=== PATIENT | female | born 1965 | race Caucasian/White ===

== ENCOUNTER 2023-02-21 06:55 | Day surgery (SDC) | payer BC ==
[2023-02-19 10:42] VITALS: BP 178/100
[~2023-02-21] VITALS: Ht 154.9 cm; Wt 73.2 kg
[~2023-02-21 06:55] MED LIST: ALORA1 EAC1 TD; BACLOFEN10 MG; DICLOFENAC SODI75 MG; DOXEPIN HCL10 MG; ESCITALOPRAM OXA5 MG PO; GABAPENTIN300 MG PO; HYDROCODON-ACE1 EA11 PO; HYDROXYZINE HCL25 MG PO; LIPITOR20 MG; LOSARTAN-HCTZ1 EAC1 PO; MELOXICAM7.5 MG PO; METOPROLOL SUCC50 MG PO; NORVASC5 MG PO; OXYCODONE HCL5 MG PO; ULTRAM50 MG PO; VENTOLIN HFA18 GM; XARELTO10 MG PO; ZANAFLEX4 M1 PO
[2023-02-21 07:03] VITALS: BP 171/66
[2023-02-21] MEDS ORDERED: TYLENOL EXTRA500 MG PO (07:08)
[2023-02-21 09:33] VITALS: BP 176/90
--- NOTE | 2023-02-21 13:59 | OR ---
[facility] [address], [place] [address] Signed DATE OF OPERATION: 02/21/2023 SURGEON: Beatriz Aguirre MD PREOPERATIVE DIAGNOSIS: Personal history of colonic polyps in 2012 at age 48. POSTOPERATIVE DIAGNOSIS: Minimal internal hemorrhoids. PROCEDURE: Colonoscopy with hot biopsy. ESTIMATED BLOOD LOSS: None. INDICATIONS FOR THE PROCEDURE: Melyssa is a 57-year-old female, who has undergone a colonoscopy at age 48 back in 2011. She did this at the [facility]. She remembers a letter had been sent to her with some type of cancer cells in her polyps. They want her back in a short interval. They also advised that she inform her children all to undergo colonoscopies as well. In the meantime, she moved out to [place], [place]. 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 Christian Kenny on November 20, 2022. She is hoping to have the right knee replaced in March [address] Kenny. She was wanting to undergo her colonoscopy in between the two knee replacements. She understands she has to wait three months after her joint replacement to have a colonoscopy. She also told me that narcotics have been causing her to run a little constipated. She has no family history of colon cancer or polyps. She does not seem to have any lower GI complaints currently. We have been trying to track down her records from [place]. In the office, I gave her a pamphlet on colonoscopy. She understands the nature of the test. There is risk including, but not limited to gas bloating, crampy abdominal pain, bleeding, perforation requiring surgery, and missed diagnosis. We also reviewed the written instructions for a bowel prep line by line. We also discussed the need for monitored anesthesia care given her need for narcotics. She had expressed understanding and wished to proceed. DESCRIPTION OF PROCEDURE: Melyssa was taken into our endoscopy suite and placed in the left lateral decubitus position. She was given monitored anesthesia care per our nurse aerial erector with propofol infusion. She was given preoperative antibiotics because of her knee replacement. A digital rectal exam was performed and this was unremarkable. There were Electronically Signed By: BEATRIZ AGUIRRE MD 02/21/23 1359 PATIENT NAME: MELYSSA ROE OPERATIVE REPORT DATE OF : 61 REPORT #: [id number] PHYSICIAN: BEATRIZ AGUIRRE MD PCP: VIKI HAMMOND MD REPORT IS CONFIDENTIAL AND NOT TO BE RELEASED WITHOUT AUTHORIZATION [facility] [address], [place] [address] Signed no external hemorrhoids. She had good sphincter tone. There were no masses. The adult colonoscope was introduced and advanced all around into the cecum under direct visualization of camera without difficulty. Her prep was quite excellent. We could easily see the appendiceal orifice and ileocecal valve. The scope was then slowly withdrawn. There was no pathology throughout the entire colon or rectum. We could never find a polypectomy scar. In the rectum, the scope was retroflexed and she has very minimal internal hemorrhoid tissue. After this, the gas was suctioned out. The colonoscope was removed. Melyssa tolerated the procedure quite well. RECOMMENDATIONS: Melyssa will stay on the five year plan according to what she has told me from her colonoscopy in [place], [place]. All her children should have had colonoscopies by the age of 40. In the meantime, we will continue to try to track down those records. MD CHELSIE Horvath/MODL /[id number] cc: Beatriz Aguirre MD Patient Chart Dr. Viki Hammond Copies: BEATRIZ AGUIRRE MD ~ Electronically Signed By: BEATRIZ AGUIRRE MD 02/21/23 1359 PATIENT NAME: MELYSSA ROE OPERATIVE REPORT DATE OF : 61 REPORT #: [id number] PHYSICIAN: BEATRIZ AGUIRRE MD PCP: VIKI HAMMOND MD REPORT IS CONFIDENTIAL AND NOT TO BE RELEASED WITHOUT AUTHORIZATION
== END 2023-02-21 09:40 | disposition home or self-care (01) ==
LOC: OPS 06:55 → DS 06:55 → OPS 08:10 → DS 08:10 → OPS 09:40 → DS 10:00
PROVIDERS: ATTEND Colon & Rectal Surgery
PROC: 0DJD8ZZ Inspection of Lower Intestinal Tract, Via Natural or Artificial Opening Endoscopic (ICD-10-PCS; principal; 2023-02-21 08:10)
DX: Z12.11 Encounter for screening for malignant neoplasm of colon (principal); Z86.010 Personal history of colon polyps; F41.1 Generalized anxiety disorder; G89.29 Other chronic pain; I10 Essential (primary) hypertension; Z87.891 Personal history of nicotine dependence; K64.8 Other hemorrhoids
CPT/HCPCS: 00811; J0690; J2704; J7121

== ENCOUNTER 2024-09-05 05:43 | Day surgery (SDC) | payer BC ==
[~2024-09-05] VITALS: Ht 154.9 cm; Wt 67.7 kg
[~2024-09-05 05:43] MED LIST changes: +DICLOFENAC SODI75 MG PO; +LACTATED RINGER'S 1,000 ML IV SCH; +MS CONTIN30 MG PO; +NEURONTIN300 MG PO; +SENNA LAX8.6 MG PO; +TYLENOL EXTRA500 MG PO
[2024-09-05 05:59] VITALS: BP 151/74
[2024-09-05] MEDS ORDERED: SODIUM CHLORIDE 0.9% 20 ML IV ONE (06:25)
[2024-09-05] MEDS ORDERED: DEXAMETHASONE SOD PHOS 4 MG/ML VIAL ONE (06:25)
[2024-09-05] MEDS ORDERED: propofoL 200 MG/20 ML VIAL ONE (06:25)
[2024-09-05] MEDS ORDERED: LIDOCAINE HCL 2% 5 ML SDV ONE (06:25)
[2024-09-05] MEDS ORDERED: MIDAZOLAM HCL 2 MG/2 ML VIAL ONE (06:25)
[2024-09-05] MEDS ORDERED: Ropivacaine HCl 0.5% 30 ML VIAL ONE (06:25)
[2024-09-05] MEDS ORDERED: HYDROCODONE/ACETA 7.5/325 TAB PO PRN (07:00)
[2024-09-05] MEDS ORDERED: LIDOCAINE HCL 1% 5 ML SDV INJ ONE (07:00)
[2024-09-05] MEDS ORDERED: CEFAZOLIN SODIUM 2 GM/20 ML SYR IV SCH (07:00)
[2024-09-05] MEDS ORDERED: IBLOOD GLUCOSE TEST STRIP 1 EA TEST VI PRN ×2 (07:00→08:15)
[2024-09-05] MEDS ORDERED: ePHEDrine sulfate 50 MG/ML AMP ONE (07:23)
[2024-09-05] MEDS ORDERED: LACTATED RINGER'S 1,000 ML IV ONE (07:24)
[2024-09-05] MEDS ORDERED: ondansetron HCL 4 MG/2 ML VIAL ONE (07:33)
[2024-09-05] MEDS ORDERED: SUGAMMADEX SODIUM 200 MG/2 ML ML ONE (07:33)
[2024-09-05] MEDS ORDERED: KETOROLAC TROMETHAMINE 30 MG/ML VIAL ONE ×2 (07:33→07:44)
[2024-09-05] MEDS ORDERED: CELECOXIB 200 MG CAP PO SCH (08:00)
[2024-09-05] MEDS ORDERED: DICLOFENAC SODI75 MG PO (08:02)
[2024-09-05] MEDS ORDERED: HYDROCODON-ACE1 EA11 PO (08:02)
[2024-09-05] MEDS ORDERED: ondansetron HCL 4 MG/2 ML VIAL IV PRN (08:15)
[2024-09-05] MEDS ORDERED: fentaNYL citrate 50 MCG/ML SDV IV PRN (08:15)
[2024-09-05] MEDS ORDERED: NALOXONE HCL 0.4 MG SYR IV PRN (08:15)
[2024-09-05 08:55] VITALS: BP 136/78
--- NOTE | 2024-09-05 09:01 | NUR ---
0850- PT ARRIVES FROM PACU SITTING UP AND SIPPING ON WATER. ICE MACHINE IN PLACE ON SHOULDER. PT TALKING WITH RN AND AT BEDSIDE. PT REPORTS NO NAUSEA AND TOLERABLE PAIN. PT GIVEN SODA, AND CRACKERS PER REQUEST. VITAL SIGNS OBTAINED. DISCHARGE CRITERA DISCUSSED. BED IN THE LOWEST POSITION AND LOCKED AND CALL LIGHT IN REACH.
[2024-09-05 09:50] VITALS: BP 128/75
--- NOTE | 2024-09-05 09:54 | NUR ---
0920-PT UP TO RESTROOM WITH STEADY AND EVEN GAIT. PT PASSES DISCHARGE CRITERIA. PT BACK TO ROOM INDEPENDENTLY. PT REPORTS FEELING "SORE". 0950- PT IS SITTING UP AND TALKING WITH AND NURSE. PAIN MEDICATION GIVEN, SEE EMAR. PT DENIES NAUSEA. VITAL SIGNS OBTAINED.
--- NOTE | 2024-09-05 10:09 | NUR ---
09/05/24 1009 Sheets,Julissa 0800 PT ARRIVED TO PACU ON 6L VIA MASK, PT ASLEEP AND RESP EVEN AND UNLABORED. 0804 PT WOKE AND PT STARTS CRYING, O2 MASK REMOVED. PT REPORTS 5/10 PAIN IN SHOULDER, "MY LAST SURGERY MY SHOULDER WAS NUMB FOR TWO DAYS." 0816 PAIN MEDICATION GIVEN PER EMAR. PT SITTING IN HIGH FOLWERS AND CYRO CUFF PLACED ON LEFT SHOULDER.
--- NOTE | 2024-09-05 10:26 | NUR ---
1018- PT GETTING DRESSED WITH ASSISTANCE OF . DISCHARGE INFORMATION GONE OVER AND EDUCATION GIVEN. PT AND DENY QUESTIONS AND CONCERNS. IV REMOVED. PT HAS ALL BELONGINGS. PT DC FROM DAY SURGERY VIA WHEELCHAIR AND IS ABLE TO GET INTO FAMILY TRUCK WITH NO ISSUES.
[2024-09-05] MEDS ORDERED: SEVOFLURANE 250 ML BTL INH ONE (13:36)
--- NOTE | 2024-09-08 10:31 | OR ---
[facility] [address] [place], [place] [address] Signed DATE OF OPERATION: 09/05/2024 SURGEON: Maki Kenny MD PREOPERATIVE DIAGNOSIS: Calcific tendinitis, left shoulder. POSTOPERATIVE DIAGNOSIS: Calcific tendinitis, left shoulder. PROCEDURE PERFORMED: Left shoulder arthroscopy with debridement of calcific deposit. VISUAL MERCHANDISING COORDINATOR: None. ANESTHESIA: General. BLOOD LOSS: Minimal. BRIEF HISTORY: Melyssa is a 59-year-old female with painful shoulder and MRI evidence of calcific tendinitis. Risks and benefits of operative treatment were discussed with her when she had failed nonoperative treatment. She elected to proceed. Once consent was obtained she was taken to the operating room. After adequate anesthesia, she was placed in a beach chair position on the shoulder positioner. She was secured in anatomic position. The shoulder was then prepped and draped in a standard sterile fashion. The shoulder was injected with 15 mL 0.25% Marcaine with epinephrine as was subacromial space. The standard posterior portal was established and scope was introduced through the shoulder. 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 The biceps, biceps anchor, and labrum were intact. Undersurface of the rotator cuff was intact. There was no significant synovitis. The subacromial space showed marked thickening of the bursa with multiple scar bands throughout. The area of calcific tendinitis was easily identified. DESCRIPTION OF OPERATION: Electronically Signed By: MAKI KENNY MD 09/08/24 1031 PATIENT NAME: MELYSSA ROE OPERATIVE REPORT DATE OF : 61 REPORT #: [id number] PHYSICIAN: MAKI KENNY MD PCP: HARJINDER SNYDER PAC REPORT IS CONFIDENTIAL AND NOT TO BE RELEASED WITHOUT AUTHORIZATION [facility] [address], [place] [address] Signed Standard diagnostic arthroscopy was undertaken as noted above and the scope was withdrawn, placed in the subacromial space. Standard lateral portal was established and Mitek VAPR and shaver were used to debride the bursa and scar tissue getting rid of those bands and allowed good visualization of the superior surface of the rotator cuff, which was found to be intact with a large lump at the anterior margin of the supraspinatus consistent with the calcific tendinitis on the MRI. The area was then opened using the spinal needle as a knife. The calcific deposit was easily identified and was expressed and then removed using the shaver. All debris was evacuated from the subacromial space. The calcific deposits in the tendon were debrided until it was relatively clear. There was good bleeding bony surface and good bleeding from the surrounding tendon. There was just a small defect of the tendon at the end of this procedure. It was not felt necessary to repair this. Once this was completed and entire fluid was debrided. Scope was withdrawn. Portals were closed with 3-0 nylon. The shoulder was injected with 60 mg of Toradol. Wounds were dressed with Allevyn and OpSite. She was awakened, taken to the recovery room in satisfactory condition. All sponge, needle, and instrument counts correct. Maki Kenny MD BA/MODL /[id number] Copies: ~ Electronically Signed By: MAKI KENNY MD 09/08/24 1031 PATIENT NAME: MELYSSA ROE OPERATIVE REPORT DATE OF : 61 REPORT #: [id number] PHYSICIAN: MAKI KENNY MD PCP: HARJINDER SNYDER PAC REPORT IS CONFIDENTIAL AND NOT TO BE RELEASED WITHOUT AUTHORIZATION
== END 2024-09-05 10:18 | disposition home or self-care (01) ==
LOC: DS 05:43
PROVIDERS: ATTEND Specialist
PROC: 0RBK4ZZ Excision of Left Shoulder Joint, Percutaneous Endoscopic Approach (ICD-10-PCS; principal; 2024-09-05 07:00)
DX: M75.32 Calcific tendinitis of left shoulder (principal); I10 Essential (primary) hypertension; K21.9 Gastro-esophageal reflux disease without esophagitis; Z87.891 Personal history of nicotine dependence; Z88.5 Allergy status to narcotic agent; Z79.899 Other long term (current) drug therapy
CPT/HCPCS: 01630; 64415; 76942; A9270; J0690; J1100; J1885; J2003; J2250; J2405; J2704; J2795; J3010; J7121